=== PATIENT | male | born 1960 | race African-American/Black ===

== ENCOUNTER → 2019-12-28 | Emergency (ER) | payer OTHER ==
[~2019-12-28] VITALS: Ht 180.3 cm; Wt 156.5 kg
[2019-12-28 06:10] LABS: Hemoglobin 10.2 g/dL (13.5-17.5); Mean Corpuscular Hemoglobin 31.2 pg (28.0-32.0); Mean Corpuscular Hgb Conc. 32.8 g/dL (32.0-36.0); Mean Corpuscular Volume 95.3 fL (80.0-100.0); Platelet Count (auto) 56 10^3/uL (140-450); Red Blood Cells 3.25 10^6/uL (4.5-5.90); Red Cell Distribution Width 17.3 % (11.8-14.3); White Blood Cell 2.6 10^3/uL (4.4-10.8)
[2019-12-28 06:13] LABS: Band Neutrophils % (manual) 0; Basophils % (manual) 0 (0.0-2.0); Blast Cells 0; Eosinophils % (manual) 0 (0-7); Metamyelocytes % 0; Myelocytes % 0; Promyelocytes % 0; Reactive Lymphocytes 0
[2019-12-28 06:23] LABS: Albumin 3.4 g/dL (3.4-5.0); Calcium 8.7 mg/dL (8.5-10.1); Partial Thromboplastin Time 26.2 sec (23.64-32.05); Potassium 4.2 mmol/L (3.5-5.1)
[2019-12-28 06:27] LABS: BUN/Creatinine Ratio 18.8; Bilirubin, Total 0.5 mg/dL (0.2-1.0); Total Protein 7.2 g/dL (6.4-8.2)
[2019-12-28 06:59] LABS: Lymphocytes % (manual) 40 (10.0-50.0); Monocytes % (manual) 7 (0-12)
[2019-12-28 07:40] VITALS: BP 127/98
== END | disposition short-term general hospital (02) ==
LOC: ER 04:47
DX: T81.49XA Infection following a procedure, other surgical site, initial encounter (principal); D64.9 Anemia, unspecified; E11.22 Type 2 diabetes mellitus with diabetic chronic kidney disease; I12.9 Hypertensive chronic kidney disease with stage 1 through stage 4 chronic kidney disease, or unspecified chronic kidney disease; N18.9 Chronic kidney disease, unspecified; E11.65 Type 2 diabetes mellitus with hyperglycemia; D69.6 Thrombocytopenia, unspecified; M79.89 Other specified soft tissue disorders
CPT/HCPCS: 36415; 74176; 80053; 83605; 83880; 85007; 85027; 85610; 85730; 87040; 93971; 99291

== ENCOUNTER 2020-02-08 18:07 | Inpatient (IN) | payer OTHER ==
[~2020-02-08] VITALS: Ht 180.3 cm; Wt 150.0 kg
[2020-02-08 18:57] LABS: Mean Corpuscular Hgb Conc. 32.1 g/dL (32.0-36.0)
[2020-02-08 18:59] LABS: Hematocrit 17.2 % (41.0-53.0); Mean Corpuscular Hemoglobin 30.4 pg (28.0-32.0); Mean Corpuscular Volume 94.7 fL (80.0-100.0); Red Blood Cells 1.81 10^6/uL (4.5-5.90)
[2020-02-08 19:00] LABS: Red Cell Distribution Width 20.4 % (11.8-14.3)
[2020-02-08 19:02] LABS: Hemoglobin 5.5 g/dL (13.5-17.5); Platelet Count (auto) 73 10^3/uL (140-450); White Blood Cell 1.2 10^3/uL (4.4-10.8)
[2020-02-08 19:03] LABS: Basophils % (manual) 0 (0.0-2.0); Blast Cells 0; Eosinophils % (manual) 0 (0-7); Metamyelocytes % 0; Myelocytes % 0; Promyelocytes % 0
[2020-02-08 19:07] LABS: Alanine Aminotransferase 59 U/L (16-61); Albumin 2.3 g/dL (3.4-5.0); Anion Gap 12 (5-15); Aspartate Aminotransferase 58 U/L (15-37); BUN/Creatinine Ratio 24.4; Blood Urea Nitrogen 57 mg/dL (7-18); Calcium 8.5 mg/dL (8.5-10.1); Carbon Dioxide 21 mmol/L (21-32); Chloride 98 mmol/L (98-107); GFR African American 37 mL/min; GFR Non-African American 30 mL/min; Glucose 173 mg/dL (74-106); Magnesium 1.9 mg/dL (1.6-2.6); Potassium 4.2 mmol/L (3.5-5.1); Sodium 131 mmol/L (136-145)
[2020-02-08 19:09] LABS: Lactic Acid w/Reflex 2.6 mmol/L (0.4-2.0)
[2020-02-08 19:12] LABS: Alkaline Phosphatase 140 U/L (45-117); Bilirubin, Total 0.7 mg/dL (0.2-1.0); Total Protein 7.4 g/dL (6.4-8.2)
[2020-02-08 19:15] LABS: Band Neutrophils % (manual) 4; Lymphocytes % (manual) 41 (10.0-50.0); Monocytes % (manual) 2 (0-12); Reactive Lymphocytes 4
[2020-02-08] MEDS ORDERED: ENOXAPARIN SOD 150 MG/1 ML SYRINGE SC ONE (22:15)
[2020-02-08] MEDS ORDERED: DEXTROSE (50%) 50ML SYRG IV PRN (22:30)
[2020-02-08] MEDS ORDERED: ACETAMINOPHEN 325 MG TAB PO PRN (22:30)
[2020-02-08] MEDS ORDERED: TEMAZEPAM 15 MG CAP PO PRN (22:30)
[2020-02-08] MEDS ORDERED: LORazepam 0.5 MG TAB PO PRN (22:30)
[2020-02-08] MEDS ORDERED: ONDANSETRON HCL 4 MG/2 ML VIAL IV PRN (22:30)
[2020-02-08] MEDS ORDERED: DOCUSATE SOD 100 MG CAP PO PRN (22:30)
[2020-02-08] MEDS: SODIUM CHLORIDE 0.9% 1,000 ML IV SCH (23:07)
[2020-02-08] MEDS: MORPHINE SULF INJ 2 MG/ML SYRINGE 1ML IV PRN (23:17)
[2020-02-09] VITALS (16 sets, daily range): BP systolic 102–156; BP diastolic 54–76
[2020-02-09] MEDS: HYDROcodone-ACET 5/325MG TAB PO PRN (04:50)
[2020-02-09] MEDS: InsuLIN REG 1unit/0.01ml Soln (100units/ml) SC SCH ×4 (06:00→18:52)
[2020-02-09] MEDS: ACCU-CHEK COMFORT CURVE STRIP VI SCH ×4 (06:26→18:00)
--- NOTE | 2020-02-09 07:30 | NUR ---
RECEIVED REPORT FROM NOC SHIFT RN. PATIENT AWAKE AND ALERT, DENIES PAIN AT THIS TIME, NO SOB OR S/S DISTRESS. PLAN OF CARE DISCUSSED. PATIENT VERBALIZED UNDERSTANDING. BED IN LOCKED AND LOW POSITION, CALL LIGHT AND PHONE WITHIN REACH. WILL CONTINUE TO MONITOR Q1HR AND PRN. PERSONAL WOUND VAC AT BEDSIDE BUT NOT SUCTION DUE TO LOW BATTERY. WOUND NURSE CONSULTED FOR ASSESSMENT AND WOUND VAC CHANGE.
[2020-02-09] MEDS ORDERED: METO-158 PO (07:49)
[2020-02-09] MEDS ORDERED: HYDR-4833 PO (07:49)
[2020-02-09] MEDS ORDERED: AMLO5TAB15 PO (07:49)
[2020-02-09] MEDS ORDERED: LISI-646 PO (07:49)
[2020-02-09] MEDS ORDERED: METF-370 PO (07:49)
[2020-02-09] MEDS ORDERED: ENOXAPARIN SOD 150 MG/1 ML SYRINGE SC SCH (10:00)
--- NOTE | 2020-02-09 10:00 | NUR ---
PATIENT CURRENTLY ON RESERVE ISOLATION, WBC 1.0
[2020-02-09] MEDS: MORPHINE SULF INJ 2 MG/ML SYRINGE 1ML IV PRN ×2 (10:07→15:08)
[2020-02-09] MEDS ORDERED: EPINEPHrine HCL 1 MG/10 ML SYRG IV ONE ×2 (10:11→10:12)
--- NOTE | 2020-02-09 10:32 | NUR ---
CRITICAL LAB VALUE WBC 1.0 MADE AWARE
[2020-02-09 10:42] LABS: Red Cell Distribution Width 18.2 % (11.8-14.3)
[2020-02-09 10:44] LABS: Hematocrit 23.7 % (41.0-53.0); Hemoglobin 7.9 g/dL (13.5-17.5); Mean Corpuscular Hemoglobin 31.8 pg (28.0-32.0); Mean Corpuscular Hgb Conc. 33.2 g/dL (32.0-36.0); Mean Corpuscular Volume 95.8 fL (80.0-100.0); Platelet Count (auto) 67 10^3/uL (140-450); Red Blood Cells 2.47 10^6/uL (4.5-5.90)
--- NOTE | 2020-02-09 10:45 | NUR ---
WOUND CARE NOTE: Wound care in to see patient per wound care request regarding L groin wound. Patient is 59 y/o male with admitting diagnosis of Acute DVT, Symptomatic Anemia. Patient is resting in bed in Rm 215A. He's awake, alert and oriented. Patient is premedicated for pain by his bedside nurse prior wound assessment. He's able to assist in turning and repositioning. His Richard score is 15. 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 Patient came in with home wound vac to his L lower abdomen/groin wound. Patient came in with no yeast maker to wound vac and eventually run out of charge. Talking to patient and family over the phone, learned that patient has home health nurse that change patient's L groin wound dressing every three days and home health nurse "supposed to come today". Dr. Wong gave verbal order to apply wound vac to patient's L groin wound while at hospital to continue care and patient to use his home wound vac upon discharge. Patient and family informed, given wound care education, verbalized understanding and agreed in plan of care. Removed patient's L lower abdomen/groin wound vac dressing. Foul odor noted and moderate amount of serous drainage noted came out from tubing. Cleansed patient's L lower abdomen/groin wound with wound cleanser, irrigated wound with NS, patted dry with gauze. Wound measuring 3x7x6 cm. Wound is red with granulation tissue, pratibha wound is pink/red. Applied Sure Prep skin protectant and drape to pratibha wound to protect surrounding skin. Fill wound cavity with one piece black GranuFoam. Secured foam dressing with transparent drape and applied trac pad. Connected tubings and run wound vac at 125 mmHg continuos as MD ordered. Good suction noted, no leak detected. Photograph of patient's L lower abdomen/groin wound are taken for reference. Patient tolerated well. Repositioned patient for comfort facing his Rt side, redistributed pressure points with pillows.Bed in low position, call linda on hand with all safety precautions in placed. RECOMMENDATION: Q3Days/PRN dressing change to L lower abdomen/groin wound per MD order, Dietary consult, frequent turning and repositioning schedule as condition permits, redistribute pressure points with pillows, elevate edematous extremities on pillows,continue monitoring by wound care while patient is hospitalized. Addendum: 02/09/20 at 1300 by Lisa Edwards RN Amended: Links added.
[2020-02-09 10:52] LABS: Basophils % (manual) 0 (0.0-2.0); Blast Cells 0; Metamyelocytes % 0; Myelocytes % 0; Promyelocytes % 0
[2020-02-09 11:03] LABS: Potassium 4.1 mmol/L (3.5-5.1)
[2020-02-09 11:07] LABS: BUN/Creatinine Ratio 36.3
--- NOTE | 2020-02-09 11:58 | NUR ---
DR HYATT AT BEDSIDE, DISCUSSED PLAN OF CARE WITH PATIENT PER MD, PLANS TO DO IVC FILTER ON TUESDAY
[2020-02-09 12:27] LABS: Band Neutrophils % (manual) 2; Eosinophils % (manual) 1 (0-7); Lymphocytes % (manual) 52 (10.0-50.0); Monocytes % (manual) 4 (0-12); Reactive Lymphocytes 3
--- NOTE | 2020-02-09 12:42 | NUR ---
SPOKE TO QUOC FROM [facility] [place], GAVE UPDATE ON PATIENT.
--- NOTE | 2020-02-09 14:17 | NUR ---
Nutrition Assessment Notes Please refer to link for full assessment notes. Est Energy needs: 7789-4115 kcals (12-15 kcal/kgBW) Est Protein needs: 156-196 gms/day (2.0-2.5 gm/kgIBW) d/t pt morbid obesity Will continue to monitor and reassess prn. Addendum: 02/09/20 at [address] Amended: Links added.
--- NOTE | 2020-02-09 15:05 | NUR ---
SPOKE TO DR. Ca URBINA ABOUT FAMILY REQUESTING FOR DILAUDID FOR PAIN INSTEAD OF MORPHINE. PER MD. MORPHINE DISCONTINUED NEW ORDER FOR 0.5MG DILAUDID IV Q4HR PRN.
[2020-02-09] MEDS: SODIUM CHLORIDE 0.9% 1,000 ML IV SCH (15:12)
[2020-02-09] MEDS ORDERED: HYDROmorphone HCL 2 MG/ML VL IV PRN (15:30)
--- NOTE | 2020-02-09 16:25 | NUR ---
COVID-19 SPECIMEN COLLECTED AND SENT TO LAB.
--- NOTE | 2020-02-09 19:15 | NUR ---
Opening shift note Assumed care of patient who is A&Ox4. Respirations even and non-labored with no s/s of distress at this time. Discussed POC with patient who verbalized understanding. Wound vac at 200 mL of serosanguineous fluid, NS running at 60. Bed in lowest locked position with 2 side rails up. Urinal bedside. Call light within reach. Will continue to monitor.
--- NOTE | 2020-02-09 20:30 | NUR ---
Bed linens/gown changed Patient had large BM. Bathed, changed gown and bed linens
--- NOTE | 2020-02-09 23:30 | NUR ---
Bed linens/gown changed Patient had large BM. Bathed, changed gown and bed linens
[2020-02-10] MEDS: ACCU-CHEK COMFORT CURVE STRIP VI SCH ×4 (01:10→18:10)
[2020-02-10] MEDS: InsuLIN REG 1unit/0.01ml Soln (100units/ml) SC SCH ×4 (01:11→18:11)
--- NOTE | 2020-02-10 02:01 | NUR ---
Pain Patient experiencing 8/10 generalized body pain. Administered 0.5 mg Dilaudid per EMAR. Will continue to monitor.
[2020-02-10] MEDS: HYDROmorphone HCL 2 MG/ML VL IV PRN ×2 (02:08→22:33)
--- NOTE | 2020-02-10 02:40 | NUR ---
Pain reassessed Patient resting with eyes closed, respirations even and non-labored. Will continue to monitor.
[2020-02-10 05:00] VITALS: BP 158/66
[2020-02-10 07:14] LABS: Hematocrit 25.2 % (41.0-53.0); Hemoglobin 8.2 g/dL (13.5-17.5); Mean Corpuscular Hemoglobin 31.1 pg (28.0-32.0); Mean Corpuscular Hgb Conc. 32.7 g/dL (32.0-36.0); Platelet Count (auto) 89 10^3/uL (140-450); Potassium 4.6 mmol/L (3.5-5.1); Red Blood Cells 2.65 10^6/uL (4.5-5.90); Red Cell Distribution Width 18.4 % (11.8-14.3); White Blood Cell 3.1 10^3/uL (4.4-10.8)
[2020-02-10 07:18] LABS: Basophils % (manual) 0 (0.0-2.0); Blast Cells 0; Eosinophils % (manual) 0 (0-7); Metamyelocytes % 0; Myelocytes % 0; Promyelocytes % 0
[2020-02-10 07:33] LABS: Albumin 2.5 g/dL (3.4-5.0); BUN/Creatinine Ratio 37.2; Bilirubin, Total 1.4 mg/dL (0.2-1.0); Calcium 8.4 mg/dL (8.5-10.1); Total Protein 7.1 g/dL (6.4-8.2)
--- NOTE | 2020-02-10 07:40 | NUR ---
Closing shift note Patient resting with s/s of distress or SOB. Endorsed care to day RNSisi.
[2020-02-10] MEDS: SODIUM CHLORIDE 0.9% 1,000 ML IV SCH (08:11)
[2020-02-10 09:00] VITALS: BP 135/57
[2020-02-10] MEDS: HYDROcodone-ACET 5/325MG TAB PO PRN (09:11)
--- NOTE | 2020-02-10 09:38 | NUR ---
WOUND CARE NOTE: Wound care in for daily monitoring of wound vac functioning. Patient is resting in bed in Rm. 215A. Patient is awake, alert and oriented. Wound vac dressing to L Lower abd/groin remain intact and connected to Ulta Vac, functioning well at 125 mmHg continuos per MD order. Vacutainer has 425 mL serous drainage. Clamped tubings and replaced canister; connected back the tubings and unclamped. Good suction noted, no leak detected. Patient tolerated well. Informed MAURO Laird that new, canister left at bedside in case of need to replace during night time.
--- NOTE | 2020-02-10 11:46 | NUR ---
IVC Filter - Refused Dr. Alvarez was at bedside. Patient said he wanted to think about it and not wilcox into anything. He stated he wanted to talk to his surgeon first and get his opinion. After MD left the room, patient said "Did I step on someone's toes?" because the doctor said he didn't have to do it but he could if it isn't done because he could get a PE. MD also said that he could transfer to [place] and get it done there if he wanted. Patient said he was here all alone and just wanted to talk to someone first. Asked if he had any family he could talk to and advised him to talk with family today and contact his surgeon tomorrow for advice. Informed him that the doctor is right and he could get up and walk and send a blood clot from his legs to his lungs which could be serious. He said he would think about it.
[2020-02-10 13:00] VITALS: BP 145/72
[2020-02-10] MEDS ORDERED: IOHEXOL 350 MG/ML 100ML IJ ONE (13:02)
--- NOTE | 2020-02-10 13:18 | NUR ---
CT Patient taken down in bed to Radiology for CT angio chest.
[2020-02-10 15:08] LABS: Band Neutrophils % (manual) 4; Lymphocytes % (manual) 45 (10.0-50.0); Monocytes % (manual) 1 (0-12)
[2020-02-10 15:09] LABS: Reactive Lymphocytes 3
[2020-02-10 17:00] VITALS: BP 128/51
--- NOTE | 2020-02-10 18:00 | NUR ---
Wants IVC filter now Patient spoke with his family and decided to get the IVC filter done here. Doctors have left for the day, will pass along to shift production supervisor to notify day shift to tell the doctor tomorrow. Family also called and told this nurse that they spoke with him and he agreed to it.
[2020-02-10 19:10] LABS: Urine WBC None Seen /hpf (0 - 3)
--- NOTE | 2020-02-10 19:20 | NUR ---
Opening shift note Assumed care of patient who is A&Ox4, no s/s of distress at this time. Discussed POC with patient who verbalized understanding. Patient had a large BM, bathed, applied barrier cream and changed linens. Placed patient in position of comfort. Wound vac sealed draining 200 ml of brown fluid. Bed in lowest locked position with 2 side rails up, call light within reach. Advised patient to call for assistance. Will continue to monitor.
[2020-02-10 19:25] LABS: Urine Bacteria NONE SEEN /hpf (None Seen); Urine Blood Negative /uL (Negative); Urine Specific Gravity 1.035 (1.001-1.035)
--- NOTE | 2020-02-10 21:00 | NUR ---
Patient BM Bathed, gown/linen change, barrier cream applied.
--- NOTE | 2020-02-10 22:30 | NUR ---
Pain Patient c/o 8/10 body pain. Administered 0.5 mg Dilaudid per EMAR. Will continue to monitor.
[2020-02-10] MEDS: ENOXAPARIN SOD 100 MG/1 ML SYRINGE SC SCH (22:33)
--- NOTE | 2020-02-10 22:55 | NUR ---
IV removal IV DC'd with clean sterile technique, catheter fully intact. Pressure dressing applied to site. Patient tolerated well.
--- NOTE | 2020-02-10 23:00 | NUR ---
IV insertion IV access obtained, via clean sterile technique by inserting 20 gauge catheter at the right FA after 1 attempt. IV secured properly. No trauma to site. Patient tolerated well.
--- NOTE | 2020-02-10 23:00 | NUR ---
Pain reassessed Patient resting without s/s of distress. Will continue to monitor.
--- NOTE | 2020-02-11 | NUR ---
Patient BM Bathed, gown/linen changed, and barrier cream applied.
[2020-02-11 00:21] VITALS: BP 140/77
[2020-02-11] MEDS: ACCU-CHEK COMFORT CURVE STRIP VI SCH ×4 (00:47→18:06)
[2020-02-11] MEDS: InsuLIN REG 1unit/0.01ml Soln (100units/ml) SC SCH ×4 (00:48→18:00)
[2020-02-11] MEDS: SODIUM CHLORIDE 0.9% 1,000 ML IV SCH ×2 (00:48→17:00)
--- NOTE | 2020-02-11 03:00 | NUR ---
Patient BM Bathed, gown/linen changed, and barrier cream applied.
[2020-02-11 05:45] VITALS: BP 152/80
[2020-02-11] MEDS: HYDROmorphone HCL 2 MG/ML VL IV PRN ×4 (06:33→22:46)
[2020-02-11 07:16] LABS: Hemoglobin 7.6 g/dL (13.5-17.5)
[2020-02-11 07:17] LABS: Hematocrit 22.5 % (41.0-53.0); Mean Corpuscular Hemoglobin 31.3 pg (28.0-32.0); Mean Corpuscular Hgb Conc. 33.7 g/dL (32.0-36.0); Mean Corpuscular Volume 92.7 fL (80.0-100.0); Platelet Count (auto) 75 10^3/uL (140-450); Red Blood Cells 2.43 10^6/uL (4.5-5.90); Red Cell Distribution Width 18.1 % (11.8-14.3)
[2020-02-11 07:21] LABS: INR 1.22 (0.9-1.15); Partial Thromboplastin Time 40.7 sec (23.64-32.05)
[2020-02-11 07:24] LABS: White Blood Cell 1.2 10^3/uL (4.4-10.8)
[2020-02-11 07:26] LABS: Basophils % (manual) 0 (0.0-2.0); Blast Cells 0; Eosinophils % (manual) 0 (0-7); Metamyelocytes % 0; Myelocytes % 0; Promyelocytes % 0; Reactive Lymphocytes 0
[2020-02-11 07:27] LABS: Potassium 4.3 mmol/L (3.5-5.1)
--- NOTE | 2020-02-11 07:33 | NUR ---
Closing shift note Patient resting, respirations even and non-labored without s/s of distress. Endorsed care to day RN, Summer.
[2020-02-11 07:34] LABS: Albumin 2.4 g/dL (3.4-5.0); BUN/Creatinine Ratio 29.2; Bilirubin, Total 1.5 mg/dL (0.2-1.0); Calcium 8.9 mg/dL (8.5-10.1); Total Protein 7.6 g/dL (6.4-8.2)
--- NOTE | 2020-02-11 07:35 | NUR ---
Opening Note Received report from shift supervisor film processing RN. Patient is awake, alert and oriented x4. Patient is on room air, respirations even and unlabored. Patient has wound vac to left groin. Patient states generalized pain 8/10 and is requesting pain medications. Will medicate per orders. Reviewed plan of care with patient. Patient verbalized understanding. Patient NPO for scheduled procedure. Bed in low and locked position, call light within reach. Will continue to monitor Q1 hour and PRN.
[2020-02-11 08:25] LABS: Band Neutrophils % (manual) 7; Lymphocytes % (manual) 61 (10.0-50.0); Monocytes % (manual) 1 (0-12)
[2020-02-11 09:00] VITALS: BP 145/75
[2020-02-11 09:30] LABS: Hepatitis B Surface Antibody Negative
[2020-02-11] MEDS: ENOXAPARIN SOD 100 MG/1 ML SYRINGE SC SCH ×2 (10:00→22:46)
--- NOTE | 2020-02-11 10:12 | NUR ---
Dr. Carlos Wong at bedside Discussing plan of care with patient and this RN. Patient scheduled to have IVC filter placed today, and than can proceed with transfer to [place] when bed available. Patient verbalized understanding. Will continue to monitor Q1 hour and PRN.
--- NOTE | 2020-02-11 12:12 | NUR ---
Patient taken down to ship laborer
[2020-02-11 13:00] VITALS: BP 149/72
[2020-02-11] MEDS ORDERED: ANGIOMAX 250 MG VIAL IV ONE (13:42)
[2020-02-11] MEDS ORDERED: fentaNYL CITRATE 100 MCG/2 ML VL ONE (13:42)
[2020-02-11] MEDS ORDERED: MIDAZOLAM HCL 1MG/1ML-2 ML VIAL ONE ×2 (13:43→14:09)
[2020-02-11] MEDS ORDERED: IOHEXOL 350 MG/ML 100ML IJ ONE (13:44)
[2020-02-11] MEDS ORDERED: LIDOCAINE 2%HCL (LOCAL ANESTH.) INJ 20ML MDV ONE ×2 (13:44→14:10)
[2020-02-11] MEDS ORDERED: SODIUM CHL 0.9% 50 ML ONE (13:47)
[2020-02-11 13:56] LABS: Hepatitis B Surface Antigen Negative (Negative)
[2020-02-11] MEDS ORDERED: diphenhdrAMINE HCL 50 MG/1 ML VL ONE (13:58)
--- NOTE | 2020-02-11 15:26 | NUR ---
Patient back to room Patient is s/p IVC filter to right groin. Dressing is clean, dry and intact. Vital signs within normal limits. Bed alarm on for safety, bed in low and locked position, call light within reach. Will continue to monitor Q1 hour and PRN.
[2020-02-11 17:00] VITALS: BP 110/70
--- NOTE | 2020-02-11 19:00 | NUR ---
Closing Note Report given to investment consultant RN. No signs or symptoms of distress noted at this time.
--- NOTE | 2020-02-11 19:20 | NUR ---
Opening shift note Assumed care of patient who is A&Ox4, respirations even and non-labored. Discussed POC with patient who verbalized understanding. Repositioned for comfort. Advised patient to call for assistance. Bed in lowest locked position with 2 side rails up, call light within reach. Will continue to monitor.
[2020-02-11 22:00] VITALS: BP 134/73
--- NOTE | 2020-02-11 22:40 | NUR ---
Pain Patient c/o 8/10 leg pain. Administered 0.5 mg Dilaudid per EMAR. Will continue to monitor.
--- NOTE | 2020-02-11 23:10 | NUR ---
Pain reassessed Patient sleeping with no SOB or s/s of distress. Will continue to monitor.
--- NOTE | 2020-02-11 23:30 | NUR ---
BM/linen change Patient had large BM. Cleaned, bathed, linen change, and barrier cream applied. Repositioned for comfort. Patient tolerated well.
[2020-02-12] MEDS: ACCU-CHEK COMFORT CURVE STRIP VI SCH ×5 (00:35→23:19)
[2020-02-12] MEDS: InsuLIN REG 1unit/0.01ml Soln (100units/ml) SC SCH ×5 (00:38→23:19)
[2020-02-12 05:00] VITALS: BP 139/78
[2020-02-12 05:38] LABS: Basophils # (auto) 0 10 ^3/uL (0-0.2); Eosinophils # (auto) 0 10 ^3/uL (0-0.8); Hemoglobin 7.3 g/dL (13.5-17.5); Lymphocytes # (auto) 0.6 10 ^3/uL (0.4-5.4); Monocytes # (auto) 0.2 10 ^3/uL (0-1.3); Neutrophils # (auto) 0.4 10 ^3/uL (1.6-8.6); Platelet Count (auto) 69 10^3/uL (140-450)
[2020-02-12 05:40] LABS: Basophils % (auto) 2.4 % (0.0-2.0); Eosinophils % (auto) 0.6 % (0.0-7.0); Hematocrit 22.1 % (41.0-53.0); Lymphocytes % (auto) 49.2 % (10.0-50.0); Mean Corpuscular Hgb Conc. 32.9 g/dL (32.0-36.0); Mean Corpuscular Volume 94.2 fL (80.0-100.0); Monocytes % (auto) 17.1 % (0.0-12.0); Neutrophils % (auto) 30.7 % (37.0-80.0); Nucleated Red Blood Cells % 1.7 %; Red Blood Cells 2.34 10^6/uL (4.5-5.90); Red Cell Distribution Width 18.1 % (11.8-14.3)
[2020-02-12 05:45] LABS: White Blood Cell 1.2 10^3/uL (4.4-10.8)
--- NOTE | 2020-02-12 05:47 | NUR ---
Critical Lab Received call for critical lab: WBC 1.2. Will notify physician.
--- NOTE | 2020-02-12 05:51 | NUR ---
Paged Hospitalist regarding critical lab.
[2020-02-12 05:59] LABS: Calcium 8.6 mg/dL (8.5-10.1); Potassium 4.3 mmol/L (3.5-5.1)
--- NOTE | 2020-02-12 06:04 | NUR ---
Hospitalist returned call Notified of WBC 1.2.
[2020-02-12 06:05] LABS: Albumin 2.2 g/dL (3.4-5.0); BUN/Creatinine Ratio 24.2; Bilirubin, Total 1.8 mg/dL (0.2-1.0); Total Protein 7.3 g/dL (6.4-8.2)
[2020-02-12] MEDS: HYDROmorphone HCL 2 MG/ML VL IV PRN ×3 (06:47→19:20)
--- NOTE | 2020-02-12 07:36 | NUR ---
Closing shift note Patient resting with no s/s of distress or SOB. Endorsed care to day RNLinda.
--- NOTE | 2020-02-12 08:00 | NUR ---
Opening Shift Note Assumed care of patient, awake, alert and oriented X4. No S/S of distress/SOB, complains of pain to the left groin wound. O2 @ 2 LPM via nasal cannula with sats @ 100%. IV to right forearm, 20 gauge, patent and infusing 0.9% NS @ 60 ml/hr. Right groin dressing clean , dry and intact, s/p IVC filter placement, left groin wound vac in place, no leaks noted, draining purulent drainage. Instructed on POC and to call for assist PRN, verbalized understanding. bed locked, in lowest position, call light within reach, will continue to monitor for changes Q1hr and PRN.
[2020-02-12] MEDS ORDERED: HYDROmorphone HCL 2 MG/ML VL IV PRN (08:45)
--- NOTE | 2020-02-12 08:45 | NUR ---
BONE MARROW BIOPSY Dr Jose Soto at bedside for bone marrow biopsy. Informed consent obtained. Patient tolerated without difficulty.
[2020-02-12 09:00] VITALS: BP 146/75
--- NOTE | 2020-02-12 09:50 | NUR ---
ROUNDS Dr Ca Wong at bedside for rounds, new orders received and followed through. Patient updated on plan of care, verbalized understanding.
[2020-02-12] MEDS: ENOXAPARIN SOD 100 MG/1 ML SYRINGE SC SCH ×2 (09:57→21:22)
--- NOTE | 2020-02-12 11:15 | NUR ---
WOUND CARE NOTE: IN TO CHANGE PATIENT'S VAC DRESSING AT THIS TIME. PATIENT LEWIS LIKE PAIN PMEDICATION PRIOR TO CHANGE. NEXT PAIN MED NOT DUE TILL AFTER 1300. WILL COME BACK AT THAT TIME.
--- NOTE | 2020-02-12 11:57 | NUR ---
Nutrition Followup Note Wt 150.0 kg Pt was with care team at time of rounds. Per MD note pt is currently awaiting transfer to [facility]. Pt with inadequate po intake aeb pt with 42% po intake avg x 2 days per Rn note. Est Energy needs: 2034-4069 kcals (12-15 kcal/kgBW) Est Protein needs: 156-196 gms/day (2.0-2.5 gm/kgIBW) d/t pt morbid obesity Will continue to monitor and reassess prn. Labs: BUN 30H, Gluc 110H, Alb 2.2L, AST 59H, ALT 89H, Alk Phos 160H BM: Pt with 3 BMs 7/6 per RN note Skin: BS 12 high risk, full details in animal care service worker note. PES; 1) Obesity r/t energy intake in excess of energy needs r/t current/chronic medical condition aeb 196% IBW and BMI of 47.1 kg/m2 2) Altered nutrition related lab values r/t current/chronic medical condition aeb hyperglycemia, severe hypoalbuminemia Comments Will continue to closely monitor pertinent labs, PO intake, skin status and weight trends. Will f/u in 3-5 days 1) Continue to closely monitor pt PO intake to meet at least 75% of meals 2) Refer pt to RD/CDE for nutrition education upon D/C 3) Consider a daily MVI with 500mg VitC BID 4) If albumin continues trending down, consider Prostat 1 pkt BID 5) Continue current plan of care Expected Outcomes/Goals: Pt appetite to remain >75% PO intake Pt labs to improve Pt to see a RD/CDE for nutrition education after D/C
[2020-02-12 12:27] VITALS: BP 137/71
--- NOTE | 2020-02-12 14:00 | NUR ---
WOUND CARE NOTE: PATIENT HAS BEEN PREMEDICATED FOR PAIN PRIOR TO WOUND VAC DRESSING CHANGE. VAC DRESSING REMOVED. PATIENT'S LEFT INGUINAL WOUND IS ACTIVELY BLEEDING. PATIENT IS RECEIVING LOVENOX D/T HIS DVT. APPLIED PRESSURE DRESSING TO WOUND, LEFT IN PLACE FOR 20 MINUTES. AFTER 20 MINUTES, TEMPORARY DRESSING REMOVED. WOUND IS STILL OOZING BLOOD, WOUND VAC DRESSING IS CONTRAINDICATED AT THIS TIME. UNABLE TO MEASURE OR PHOTOGRAPH WOUND D/T BLEEDING. APPLIED WET TO DRY DRESSING WITH BETADINE, KERLIX , STERILE 4X4'S, OPTILOCK DRESSING. SECURED ALL IN PLACE WITH PRESSURE TAPE AND MEDIPORE TAPE. PATIENT TOLERATED DRESSING CHANGE WELL, NOTING MINIMAL DISCOMFORT BY PATIENT. WILL ATTEMPT TO APPLY WOUND VAC DRESSING IN THE AM, IF WOUND HAS STOPPED BLEEDING. WOUND CARE TEAM WILL CONTINUE TO MONITOR. Addendum: 02/12/20 at 1543 by Annemarie Crowley RN Amended: Links added.
--- NOTE | 2020-02-12 14:03 | NUR ---
assessment Patient is a 59 year old male who is alert and oriented. Patients cognitive abilities are intact. Prior to admission patient lived home with family and functioned independently. Patient informed me he is able to care for his own ADLs. Per patient he was admitted for left knee embolism. Patient is aware of his [place] transfer order. Patient agrees to transfer. [facility] case manage is working on transfer. I will continue to monitor and follow up as appropriate. I informed patient he has a right to speak to a social media project manager regarding all care. I informed patient he has a right to participate in any and all discharge planning. Patient does not have a POA and advanced directive. I have offered patient information on POA and advanced directives. I informed the patient the advantages and benefits of having an Advanced Directive. Patient verbalized understanding and agreed to discharge plan. Addendum: 02/12/20 at 1406 by Tressa PINTO Amended: Links added.
[2020-02-12] MEDS: SODIUM CHLORIDE 0.9% 1,000 ML IV SCH (16:36)
[2020-02-12 17:10] VITALS: BP 118/95
--- NOTE | 2020-02-12 19:17 | NUR ---
1815 02/12/20 - Contacted [facility] at [phone] requesting update on transfer to [facility] and/or authorization for continued inpatient stay. Per crime analyst Bebe due to COVID 19 there are no beds available. Patient is authorized for continued inpatient stay for today. Hard copy to be faxed.
--- NOTE | 2020-02-12 19:21 | NUR ---
Care endorsed to MAURO Antonio, night nurse.
--- NOTE | 2020-02-12 20:00 | NUR ---
Opening Shift Note Assumed care of patient, awake and alert. No S/S of distress/SOB or pain. Instructed on POC and to call for assist PRN, will continue to monitor for changes Q1hr and PRN. DRESSING TO INGUINAL AREA IS CLEAN DRY AND INTACT. WILL CONTINUE TO MONITOR.
[2020-02-12] MEDS: HYDROcodone-ACET 5/325MG TAB PO PRN (21:23)
[2020-02-12 22:00] VITALS: BP 109/68
[2020-02-13] MEDS: HYDROmorphone HCL 2 MG/ML VL IV PRN ×4 (01:08→16:02)
[2020-02-13] MEDS: SODIUM CHLORIDE 0.9% 1,000 ML IV SCH (02:20)
[2020-02-13] MEDS: HYDROcodone-ACET 5/325MG TAB PO PRN ×3 (04:07→13:21)
[2020-02-13 05:00] VITALS: BP 139/74
[2020-02-13] MEDS: InsuLIN REG 1unit/0.01ml Soln (100units/ml) SC SCH ×2 (06:00→11:21)
[2020-02-13] MEDS: ACCU-CHEK COMFORT CURVE STRIP VI SCH ×2 (06:11→11:21)
--- NOTE | 2020-02-13 07:05 | NUR ---
OPENING NOTE Assumed care of patient at 0700. Respiratory sounds clear, equal bilaterally and unlabored. Patient verbalized a general severe level of pain. Will administer PRN pain med per orders. Dressing site dry, clean and intact. Instructed patient to raise left lower extremity on pillow, however patient refused. Instructed patient to perform active range of motion of lower extremities to which patient agreed. Bed locked in lowest position, side rails up x 2, HOB elevated at least 30 degrees and call light is within reach. Will continue to monitor.
--- NOTE | 2020-02-13 08:51 | NUR ---
PAIN MANAGEMENT Patient verbalized a general severe level of pain. Administered PRN pain medication. Will reassess pain level within the hour.
[2020-02-13 09:00] VITALS: BP 134/62
--- NOTE | 2020-02-13 09:30 | NUR ---
PAIN REASSESSMENT Patient's current pain level is moderate at this time. Patient verbalized that this is a tolerable pain level for him. Will continue to monitor.
[2020-02-13] MEDS ORDERED: APIXABAN 5 MG TAB PO SCH (10:00)
--- NOTE | 2020-02-13 10:30 | NUR ---
PAIN MANAGEMENT Patient verbalized a severe pain level. PRN pain medication administered per orders and tolerated well. Will reassess within the hour.
--- NOTE | 2020-02-13 10:38 | NUR ---
PT REFUSED ABG DRAW AFTER 1 ATTEMPT. PT ON RA WITH A SPO2 97%. MAURO ALAMO MADE AWARE.
[2020-02-13] MEDS ORDERED: APIXABAN 5 MG TAB PO ONE (11:00)
--- NOTE | 2020-02-13 11:00 | NUR ---
PAIN REASSESSMENT Pain reassessed at this time. Patient is verbalizing a moderate level of pain at this time. Patient verbalized that this pain level is tolerable. Will continue to monitor.
[2020-02-13 13:00] VITALS: BP 134/70
[2020-02-13 15:16] VITALS: BP 134/62
--- NOTE | 2020-02-13 16:45 | NUR ---
WOUND CARE Lisa, wound care nurse at bedside to assess left groin wound and determine if patient meets criteria to place home wound vac. Per Lisa, due to wound bleeding secondary to blood thinners, she does not recommend home wound vac to be placed. Patient informed, agreed and verbalized understanding. Wound packed and new dressing applied.
[2020-02-13 16:50] VITALS: BP 113/66
--- NOTE | 2020-02-13 16:50 | NUR ---
WOUND CARE NOTE: Wound care has Discharge order. Wound care in to talk to patient and family over the phone. Per yesterday can cutter Mala's report that patient's L inguinal wound is bleeding and so wound vacc is not applied. Patient is resting in bed in Rm. 215A. Patient is awake, alert and oriented. Patient and family wound care education provided, verbalized understanding. Patient op not to apply his home wound vac as his home wound care nurse will be coming to his house tomorrow to assess the wound and to apply Wound vac. In addition, per MAURO Mckeon patient had a dose of blood thinner today. Wet outside wound dressing with wound cleanser for easy removal of tape dressing. Removed patient's L inguinal wound dressing and packing.Irrigated wound with NS, moderate amount of serous drainage with foul odor noted. Pat dry wound and surrounding skin with sterile gauze. Fill wound cavity with one piece NS moistened gauze roll, covered with abd pad, secured with foam tape. Patient tolerated well. DC Photograph of wound taken for reference.
--- NOTE | 2020-02-13 17:28 | NUR ---
1725 02/13/20 - Contacted [facility] at [phone] requesting update on transfer to [facility] and/or authorization for continued inpatient stay. Per loan review analyst Bebe due to COVID 19 there are no beds available. Patient is authorized for continued inpatient stay for today. Hard copy to be faxed.
--- NOTE | 2020-02-13 17:29 | NUR ---
Discharge instructions given as ordered. Encourage to follow up with PMD as instructed. All questions and concerns addressed. Patient verbalized understanding. Medication reconciliation form completed and copy given to patient. IV removed with catheter intact, pressure dressing applied. Telemetry unit returned to ICU. Patient taken to vehicle via wheelchair with all personal belongings, accompanied by staff. No distress noted at time of departure.
== END 2020-02-13 17:30 | disposition home health service (06) | DRG 253 ==
LOC: EDBD 18:07 → ER 18:26 → TELE 18:27 → TELE-CENTR 23:48
PROVIDERS: ADMIT Hospitalist; ATTEND Family Medicine
PROC: 30230N1 Transfusion of Nonautologous Red Blood Cells into Peripheral Vein, Open Approach (ICD-10-PCS; principal; 2020-02-09)
PROC: 06H03DZ Insertion of Intraluminal Device into Inferior Vena Cava, Percutaneous Approach (ICD-10-PCS; 2020-02-11)
PROC: 0P903ZX Drainage of Sternum, Percutaneous Approach, Diagnostic (ICD-10-PCS; 2020-02-12)
PROC: 079T3ZX Drainage of Bone Marrow, Percutaneous Approach, Diagnostic (ICD-10-PCS; 2020-02-12)
DX: I82.442 Acute embolism and thrombosis of left tibial vein (principal); D61.818 Other pancytopenia; Z68.42 Body mass index [BMI] 45.0-49.9, adult; E44.0 Moderate protein-calorie malnutrition; N17.9 Acute kidney failure, unspecified; D68.69 Other thrombophilia; I82.432 Acute embolism and thrombosis of left popliteal vein; T45.1X5A Adverse effect of antineoplastic and immunosuppressive drugs, initial encounter; D69.6 Thrombocytopenia, unspecified; D64.9 Anemia, unspecified; E66.01 Morbid (severe) obesity due to excess calories; E11.9 Type 2 diabetes mellitus without complications; I10 Essential (primary) hypertension; Z80.3 Family history of malignant neoplasm of breast; Z85.49 Personal history of malignant neoplasm of other male genital organs; Z85.828 Personal history of other malignant neoplasm of skin; Z03.818 Encounter for observation for suspected exposure to other biological agents ruled out
CPT/HCPCS: 36415; 36430; 36600; 71045; 71275; 80048; 80053; 80061; 81001; 82805; 82962; 83036; 83605; 83615; 83735; 83880; 84484; 85007; 85025; 85027; 85045; 85379; 85610; 85730; 86703; 86706; 86803; 86850; 86880; 86900; 86901; 86920; 87040; 87340; 88189; 93005; 93306; 93971; 96372; 97163; 99152; G0378; J1815; J2250

== ENCOUNTER 2020-04-10 17:29 | Emergency (ER) | payer OTHER ==
[~2020-04-10] VITALS: Ht 180.3 cm; Wt 136.1 kg
[~2020-04-10 17:29] MED LIST: AMLO5TAB15 PO; HYDR-4833 PO; LISI-646 PO; METF-370 PO; METO-158 PO
[2020-04-10 20:00] LABS: INR 1.4 (0.9-1.15)
[2020-04-10 20:03] LABS: Albumin 2.6 g/dL (3.4-5.0)
[2020-04-10 20:07] LABS: BUN/Creatinine Ratio 27.3; Bilirubin, Total 1.1 mg/dL (0.2-1.0); Total Protein 6.6 g/dL (6.4-8.2)
[2020-04-10] MEDS ORDERED: ONDANSETRON HCL 4 MG/2 ML VIAL IV ONE (20:15)
[2020-04-10] MEDS ORDERED: MORPHINE SULFATE 4 MG/ML SYR/VIAL IV ONE ×2 (20:15→21:00)
[2020-04-10] MEDS ORDERED: PANTOPRAZOLE 40 MG/10 ML VIAL INJ IV ONE (20:15)
[2020-04-10] MEDS ORDERED: HYDROcodone-ACET 10/325MG TAB PO ONE (20:30)
[2020-04-10 20:35] LABS: Potassium 2.9 mmol/L (3.5-5.1)
[2020-04-10] MEDS ORDERED: POTASSIUM EFFERVESENT TAB 25 MEQ PO ONE ×3 (20:45→23:30)
[2020-04-10 21:12] LABS: Basophils # (auto) 0 10 ^3/uL (0-0.2); Eosinophils # (auto) 0 10 ^3/uL (0-0.8); Lymphocytes # (auto) 0.1 10 ^3/uL (0.4-5.4); Mean Corpuscular Volume 90.5 fL (80.0-100.0); Monocytes # (auto) 0 10 ^3/uL (0-1.3); Neutrophils # (auto) 0.3 10 ^3/uL (1.6-8.6)
[2020-04-10 21:14] LABS: Basophils % (auto) 1.1 % (0.0-2.0); Eosinophils % (auto) 0.4 % (0.0-7.0); Hematocrit 18.1 % (41.0-53.0); Lymphocytes % (auto) 20.7 % (10.0-50.0); Mean Corpuscular Hemoglobin 31.8 pg (28.0-32.0); Mean Corpuscular Hgb Conc. 35.2 g/dL (32.0-36.0); Monocytes % (auto) 1.1 % (0.0-12.0); Neutrophils % (auto) 76.7 % (37.0-80.0); Platelet Count (auto) 26 10^3/uL (140-450); Red Blood Cells 1.99 10^6/uL (4.5-5.90); Red Cell Distribution Width 16.3 % (11.8-14.3)
[2020-04-10 21:27] LABS: Hemoglobin 6.3 g/dL (13.5-17.5); White Blood Cell 0.3 10^3/uL (4.4-10.8)
[2020-04-10] MEDS ORDERED: ENOXAPARIN SOD 100 MG/1 ML SYRINGE SC ONE (21:45)
[2020-04-10 23:08] LABS: Calcium 8.4 mg/dL (8.5-10.1); Potassium 3.1 mmol/L (3.5-5.1)
[2020-04-10 23:26] LABS: Albumin 2.6 g/dL (3.4-5.0); Bilirubin, Total 1.2 mg/dL (0.2-1.0); Total Protein 6.9 g/dL (6.4-8.2)
[2020-04-11 00:18] VITALS: BP 124/69
[2020-04-11 00:34] VITALS: BP 122/63
[2020-04-11 01:39] VITALS: BP 128/71
[2020-04-11] MEDS ORDERED: ONDANSETRON HCL 4 MG/2 ML VIAL IV ONE (01:45)
[2020-04-11] MEDS ORDERED: HYDROmorphone HCL 2 MG/ML VL IV ONE (01:45)
== END 2020-04-11 02:19 | disposition short-term general hospital (02) ==
LOC: ER 17:29
DX: D64.9 Anemia, unspecified (principal); D72.819 Decreased white blood cell count, unspecified; C80.1 Malignant (primary) neoplasm, unspecified; E87.6 Hypokalemia; I89.0 Lymphedema, not elsewhere classified; L03.311 Cellulitis of abdominal wall; I82.432 Acute embolism and thrombosis of left popliteal vein
CPT/HCPCS: 36415; 36430; 71045; 80053; 83880; 84484; 85025; 85610; 85730; 86850; 86900; 86901; 86920; 93005; 93926; 96372; 96374; 96375; 96376; 99285; C9113; J1170; J1650; J2270; J2405; P9016